=== PATIENT | female | born 1955 | race Caucasian/White ===

== ENCOUNTER 2020-08-30 15:21 | Emergency (ER) | payer MEDICARE, BC ==
[2020-08-30] MEDS ORDERED: Morphine 4 MG/ML VIAL ONE (16:23)
== END 2020-08-30 17:03 | disposition home or self-care (01) ==
LOC: CSHERS 15:21
DX: S42.292A Other displaced fracture of upper end of left humerus, initial encounter for closed fracture (principal); E03.9 Hypothyroidism, unspecified; E78.5 Hyperlipidemia, unspecified; Z79.899 Other long term (current) drug therapy; W18.30XA Fall on same level, unspecified, initial encounter
CPT/HCPCS: 72040; 96372; J2270

== ENCOUNTER 2022-03-20 12:46 | Outpatient (CLI) | payer MEDICARE, BC | END 2022-03-20 12:47 | disposition home or self-care (01) | LOC: CSHMAMMO 12:46 | PROVIDERS: ATTEND Internal Medicine | DX: Z12.31 Encounter for screening mammogram for malignant neoplasm of breast (principal); Z13.820 Encounter for screening for osteoporosis; Z78.0 Asymptomatic menopausal state; M85.851 Other specified disorders of bone density and structure, right thigh; Z98.82 Breast implant status; Z80.3 Family history of malignant neoplasm of breast | CPT/HCPCS: 77063; 77067; 77080 ==

== ENCOUNTER 2023-07-06 01:56 | Emergency (ER) | payer MEDICARE, BC ==
[2023-07-06 02:26] LABS: Bilirubin Neg (Negative); Blood, Urine 250 (Negative); Glucose, Urine (Dipstick) Normal (Negative); Ketone, Urine Negative (Negative); Leukocyte 500 (Negative); Nitrite Negative (Negative); Protein, Urine (Dipstick) 100 mg/dl (Neg-Trace); Specific Gravity, Urine 1.005 (1.005-1.030); Urobilinogen Normal mg/dL (Less than 2)
[2023-07-06 02:28] LABS: Clarity Cloudy (Clear)
[2023-07-06 02:35] LABS: RBC/HPF Greater than 50 HPF (0-3)
[2023-07-06 02:37] LABS: CAUTI Indications for Culture Acute Hematuria; Squamous Epithelial 0-3 HPF (0-3); WBC/HPF Greater Than 50 HPF (0-3)
[2023-07-06 02:44] LABS: Bacteria/HPF 2+ HPF (None Seen); Transitional Epithelial 0-3 HPF (None Seen)
[2023-07-06 02:45] LABS: Urine Culture Reflex Yes Yes
[2023-07-06] MEDS ORDERED: Phenazopyridine HCl 95 MG TAB PO SCH (02:45)
[2023-07-06] MEDS ORDERED: Cefuroxime 250 MG TAB PO SCH (03:00)
== END 2023-07-06 03:00 | disposition home or self-care (01) ==
LOC: CSHERS 01:56
DX: N39.0 Urinary tract infection, site not specified (principal); E03.9 Hypothyroidism, unspecified; E78.5 Hyperlipidemia, unspecified; Z79.899 Other long term (current) drug therapy
CPT/HCPCS: 81001; 87077; 87086; 87186; 99283

== ENCOUNTER 2024-05-31 10:14 | Outpatient (CLI) | payer MEDICARE, BC | END 2024-05-31 10:15 | disposition home or self-care (01) | LOC: CSHMAMMO 10:14 | PROVIDERS: ATTEND Nurse Practitioner | DX: Z78.0 Asymptomatic menopausal state (principal); M85.851 Other specified disorders of bone density and structure, right thigh; M85.852 Other specified disorders of bone density and structure, left thigh | CPT/HCPCS: 77080 ==